=== PATIENT | male | born 1965 | race Caucasian/White ===

== ENCOUNTER 2022-09-20 12:17 | Outpatient (OUT) | payer BC, SELFPAY ==
--- NOTE | 2022-09-20 12:21 | VEIN_ITS ---
The [address] [address] Patient Name: ENEDINA CUNNINGHAM MRN: [id number] date: 1965 Sex: M Assigned Patient Location: Current Patient Location: Accession/Order Number: [id number] Exam Date: 09/20/2022 12:53 Report Date: 09/20/2022 13:54 At the request of: JUN FRANCO Procedure: VC Endovenous Ablation 1VeinRT EXAMINATION: VC Endovenous Ablation 1Vein Right great saphenous vein HISTORY: Painful Varicose Veins COMPARISON: No relevant comparison available. TECHNIQUE: The risks and benefits of the procedure had been previously discussed, and were rediscussed at length. Informed written consent was obtained. Ruthie Magaña and Sybil assisted. Time out procedure was performed. The right lower extremity was prepared and draped in the usual sterile fashion to allow knee flexion in the sterile field. Duplex ultrasound probe was draped in a sterile cover, sterile transmission gel was used. Venous mapping was performed with the areas of dilation and large tributaries marked. The total length was 55 cm from the entry 5 cm above the medial malleolus to 3 cm below the saphenofemoral junction. The diameter of the greater saphenous vein ranged from 5-12 mm. A 30 gauge needle and 1% buffered lidocaine was used to anesthetize the entry site. A 4 mm incision was made with a scalpel and the saphenous vein was entered percutaneously under direct ultrasound guidance with a micropuncture set, a single stick was successful in gaining access. A micro-guide wire was inserted and the needle removed. A micro-set including a dilator was inserted over the microwire and the needle and dilator were removed. A .018 guide wire was inserted through the micro-set and threaded through the saphenous vein to the saphenofemoral junction. The dilator was removed and an introducer sheath was inserted over the wire until the end of the sheath entered the saphenofemoral junction. The dilator and wire were removed and the 600 micron fiber was introduced and placed and positioned so that it extended beyond the sheath and was 3 cm peripheral to the saphenofemoral femoral junction. Final position of the fiber was determined by ultrasound guidance and duplex imaging. Tumescent anesthetic was delivered by ultrasound guidance. 300 cc of fluid was delivered along the entire course of the saphenous vein. The solution consisted of 1000 cc of normal saline with 40 mL of 1% lidocaine and 20 mL of sodium bicarbonate. A final positioning check was made. The energy source was turned on by means of the foot pedal and the fiber and sheath were withdrawn. The total number of Joules delivered was 2547. The laser was active for 318 seconds under continuous pulse, average laser use of 8 J. Laser start time 1:13 pm 09/20/22 . Laser stop time 1:20 pm 09/20/22 . A duplex ultrasound revealed compressibility and flow at the saphenofemoral junction immediately after the procedure. Hemostasis at the access site was achieved. The skin incision of the saphenous vein was closed with a 4 x 4. A compression stocking was applied. Postop instructions were given. A follow up appointment was recommended and scheduled. The patient tolerated the procedure well and was discharged in good condition . IMPRESSION: Technically successful endovenous laser ablation right great saphenous vein Electronically authenticated by: JUN FRNACO Date: 09/20/2022 13:54
[2022-09-20] MEDS: 0.9 % SODIUM CHLORIDE 500 ML, LIDOCAINE HCL 20 ML, SODIUM BICARBONATE 10 MEQ INJ (13:09)
[2022-09-20] MEDS: LIDOCAINE HCL 10 ML, SODIUM BICARBONATE 1 MEQ INJ (13:09)
== END 2022-09-20 12:18 | disposition home or self-care (01) ==
LOC: VC 12:17
PROVIDERS: PCP Radiology Diagnostic Radiology; Visit Provider Radiology Diagnostic Radiology
DX: I83.813 Varicose veins of bilateral lower extremities with pain (principal)
CPT/HCPCS: 36478

== ENCOUNTER 2022-09-25 07:48 | Outpatient (OUT) | payer BC, SELFPAY ==
--- NOTE | 2022-09-25 | VEIN_ITS ---
Patient: ENEDINA CUNNINGHAM Exam Date: 09/25/2022 : 1965 Gender:M Ordering : DR JUN FRANCO M.D. Admission #: [id number] Family : Order #: [id number] CLICK HERE TO VIEW EXAM RADIOLOGY REPORT PROCEDURE: VC EXT VENOUS RT LMTD COMPARISON: None. INDICATIONS: Phlebitis of superficial veins of rt lower extremity I80.01 TECHNIQUE: Lower extremity leyva scale and Duplex Doppler evaluation of the deep venous system from the inguinal ligament through the calf veins. FINDINGS: REGION: Right lower extremity. THROMBI: Negative for DVT. Heat induced thrombus visualized in right GSV 2.0 cm from SFJ and extends to distal lower leg. COMPRESSIBILITY: Non-compressible segments. FLOW: Areas of no flow. OTHER: Multiple patent varicosities remain. CONCLUSION: 1. Successful post ablation occlusion of right great saphenous vein. Dictated by: Thiago Freed M.D. on 09/25/2022 at 10:34 Approved by: Thiago Freed M.D. on 09/25/2022 at 10:38
--- NOTE | 2022-09-25 | VEIN_ITS ---
Patient: ENEDINA CUNNINGHAM Exam Date: 09/25/2022 : 1965 Gender:M Ordering : DR JUN FRANCO M.D. Admission #: [id number] Family : Order #: [id number] CLICK HERE TO VIEW EXAM RADIOLOGY REPORT PROCEDURE: FACILITY EST [facility]D [facility] - OFFICE VISIT FOLLOW UP COMPARISON: None. PROGRESS NOTES: The patient reports some improvement in right leg symptoms. There has been interval reduction in varicosities, but persistent edema. The patient has followed our recommendations to walk 20-30 minutes once or twice per day since the procedure. Physical exam demonstrates decrease in some superficial varicosities of the right leg. Persistent varicosities and subcutaneous edema are identified along the legs bilaterally. Review of the ultrasound performed the same day demonstrates occlusive thrombus extending throughout the treated vein, see separate report, consistent with a successful ablation. No thrombus extending into or beyond the saphenofemoral junction. Dilated segment of distal right great saphenous vein. Borderline dilation of right anterior accessory saphenous vein concerning for future progression. VEIN/ Facility EST LMTD IMPRESSION: 1. Successful ablation of the right great saphenous vein 2. Improvement, but patient has additional dilated incompetent veins, lower extremity edema, and bilateral lower extremity symptoms. No additional treatment has been approved by insurance company. PLAN: Follow-up ultrasound evaluation in 3-6 months to assess stability versus change. Nurse notes, history and physical were reviewed and confirmed, see attached forms. The nurse was present throughout the physical exam and consultation Dictated by: Thiago Freed M.D. on 09/25/2022 at 10:38 Approved by: Thiago Freed M.D. on 09/25/2022 at 10:43
== END 2022-09-25 07:49 | disposition home or self-care (01) ==
LOC: VC 07:48
PROVIDERS: PCP Radiology Diagnostic Radiology; Visit Provider Radiology Diagnostic Radiology
DX: I80.01 Phlebitis and thrombophlebitis of superficial vessels of right lower extremity (principal)
CPT/HCPCS: 93971; G0463